=== PATIENT | female | born 1985 | race Caucasian/White ===

== ENCOUNTER 2019-06-25 20:16 | Emergency (ER) | payer SELFPAY ==
[2019-06-25 21:00] LABS: ANION GAP 14.2; CHLORIDE,CL 99 mmol/L (101-111); SODIUM,NA 137 mmol/L (135-145)
[2019-06-25 21:19] LABS: ACETAMINOPHEN < 10.0 ug/mL
== END 2019-06-25 20:49 | disposition left against medical advice (07) ==
LOC: DL.ED 20:16
DX: Z53.21 Procedure and treatment not carried out due to patient leaving prior to being seen by health care provider (principal)
CPT/HCPCS: 36415; 80053; 80307; 85025

== ENCOUNTER 2019-06-27 21:15 | Emergency (ER) | payer SELFPAY ==
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
== END 2019-06-27 21:27 ==
LOC: DL.ED 21:15
DX: S50.312A Abrasion of left elbow, initial encounter (principal); S60.511A Abrasion of right hand, initial encounter; F10.120 Alcohol abuse with intoxication, uncomplicated; Y04.0XXA Assault by unarmed brawl or fight, initial encounter
CPT/HCPCS: 99282; 99285